=== PATIENT | female | born 1975 | race Caucasian/White ===

== ENCOUNTER 2020-08-12 01:33 | Emergency (ER) | payer SELFPAY ==
[~2020-08-12] VITALS: Ht 177.8 cm; Wt 75.0 kg
[2020-08-12 01:49] VITALS: BP 128/76
[2020-08-12] MEDS ORDERED: B12 INJECTIONS (01:53)
== END 2020-08-12 03:34 | disposition home or self-care (01) ==
LOC: M ED 01:33
DX: Z53.21 Procedure and treatment not carried out due to patient leaving prior to being seen by health care provider (principal)